=== PATIENT | female | born 1940 | race Caucasian/White ===

== ENCOUNTER 2016-04-14 11:37 | Emergency (ER) | payer MEDICARE ==
[2016-04-14 13:27] VITALS: BP 143/81
[2016-04-14] MEDS ORDERED: Ibuprofen TAB* 600 MG PO ONE (14:59)
[2016-04-14] MEDS ORDERED: Acetaminophen TAB* 325 MG PO ONE (15:00)
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
== END 2016-04-14 15:40 | disposition home or self-care (01) ==
LOC: UCEAST 11:37
DX: T22.211A Burn of second degree of right forearm, initial encounter (principal); X10.0XXA Contact with hot drinks, initial encounter; Y93.9 Activity, unspecified; Y92.9 Unspecified place or not applicable; J06.9 Acute upper respiratory infection, unspecified; Z88.6 Allergy status to analgesic agent; Z88.1 Allergy status to other antibiotic agents; Z88.2 Allergy status to sulfonamides; Z88.3 Allergy status to other anti-infective agents
CPT/HCPCS: 99213; A9270-GY; G0463

== ENCOUNTER 2016-04-25 05:05 | Emergency (ER) | payer MEDICARE ==
[2016-04-25 05:53] LABS: Hematocrit 45 % (35-47); Hemoglobin 15.1 g/dl (12.0-16.0); Mean Corpuscular HGB Conc 34 g/dl (31-36); Mean Corpuscular Hemoglobin 32 pg (27-31); Mean Corpuscular Volume 95 fL (80-97); Mean Platelet Volume 8 um3 (7.4-10.4); Red Blood Count 4.74 10^6/ul (4.0-5.4); Red Cell Distribution Width 14 % (10.5-15); White Blood Count 11.8 10^3/ul (3.5-10.8)
[2016-04-25 06:04] LABS: Albumin 3.8 g/dL (3.2-5.2); BUN/Creatinine Ratio 23.1 (8-20); C Reactive Protein 3.2 mg/L (< 5.00); EGFR African American 92.1 (>60); EGFR Non-African American 71.6 (>60); Globulin 2.8 g/dL (2-4); Magnesium 1.8 mg/dL (1.9-2.7); Potassium 3.9 mmol/L (3.5-5.0); Total Bilirubin 0.4 mg/dL (0.2-1.0); Total Protein 6.6 g/dL (6.4-8.9)
[2016-04-25 06:05] LABS: Troponin I 0.01 ng/mL (<0.04)
[2016-04-25] MEDS ORDERED: Ondansetron INJ* 2 MG/ML VIAL ONE (06:20)
[2016-04-25] MEDS ORDERED: Ondansetron INJ* 2 MG/ML VIAL IV ONE (06:22)
--- NOTE | 2016-04-25 06:22 | ED ---
Ramin Verdugo Karl, scribed for Diego Bahena MD on 04/25/16 at 0517 . Abdominal Pain/Female - HPI Summary HPI Summary: Pt is a 76 y/o female that presents to the ED c/o abd pain, nausea, and vomiting. Pt reported that she "thought she was having a heart attack but thinks it might be food poisoning." Pt stated that she woke up at 03:15 with nausea and epigastric abd pain so she drank renard rimma and proceeded to vomit it back up, slightly alleviating her abd pain. Pt stated she also felt SOB but has been feeling this intermittently for the past few days. Pt stated that she ate foods last night that she does not normally eat and that is why she suspects food poisoning. Pt reported that she took aspirin at home but it offered no relief. Pt denied diarrhea. Hx: CAD, HTN. - History of Current Complaint Chief Complaint: EDAbdPain Stated Complaint: ABD PAIN Hx Obtained From: Patient ?: No Onset/Duration: Gradual Onset, Lasting Hours, Still Present Timing: Constant Severity Initially: Moderate Severity Currently: Moderate Pain Intensity: 1 - abd pain Pain Scale Used: 0-10 Numeric Location: Epigastric Aggravating Factor(s): Nothing Alleviating Factor(s): Vomiting Associated Signs and Symptoms: Positive: Nausea, Vomiting. Negative: Diarrhea Allergies/Adverse Reactions: Allergies Allergy/AdvReac Type Severity Reaction Status Date / Time Codeine Allergy Severe Unknown Verified 01/20/16 16:28 Reaction Details Doxycycline Allergy Unknown Unknown Verified 01/20/16 16:28 Reaction Details Moxifloxacin [From Avelox] Allergy Unknown Unknown Verified 01/20/16 16:28 Reaction Details Niacin [From Niaspan] Allergy Unknown Unknown Verified 01/20/16 16:28 Reaction Details Nitrofurantoin Allergy Vomiting Verified 01/20/16 16:29 Statins Allergy Unknown Verified 01/20/16 16:28 Reaction Details Sulfa Antibiotics Allergy Hives Verified 01/20/16 16:28 Home Medications: Home Medications Acetaminophen [Arthritis Pain] 650 mg PO BID 04/25/16 [History Confirmed ] Nitroglycerin TAB 0.4 MG* 0.4 mg SL . NEEDED PRN 04/25/16 [History Confirmed 04/25/16] PMH/Surg Hx/FS Hx/Imm Hx Endocrine/Hematology History: Denies: Hx Diabetes, Hx Thyroid Disease Cardiovascular History: Reports: Hx Angina, Hx Coronary Artery Disease, Hx Hypercholesterolemia, Hx Hypertension, Other Cardiovascular Problems/Disorders - PATENT FORAMEN OVALE (SEEN ON 2011 SEGUNDO) Denies: Hx Congestive Heart Failure, Hx Pacemaker/ICD Respiratory History: Denies: Hx Asthma, Hx Chronic Obstructive Pulmonary Disease (COPD), Other Respiratory Problems/Disorders GI History: Reports: Hx Diverticulosis, Hx Gastroesophageal Reflux Disease Denies: Hx Ulcer Musculoskeletal History: Reports: Hx Arthritis Sensory History: Reports: Hx Cataracts, Hx Contacts or Glasses Denies: Hx Hearing Aid Opthamlomology History: Reports: Hx Cataracts, Hx Contacts or Glasses Neurological History: Reports: Hx Transient Ischemic Attacks (TIA) - POSSABLY TIA IN 2011, Other Neuro Impairments/Disorders - TIA 15 YRS AGO Psychiatric History: Reports: Hx Anxiety, Hx Depression - Surgical History Surgery Procedure, Year, and Place: Tummy tuck and breast reduction Hx Anesthesia Reactions: No Infectious Disease History: Denies: Hx Hepatitis, Hx Human Immunodeficiency Virus (HIV), History Other Infectious Disease - Family History Known Family History: Positive: Cardiac Disease Family History: No FHx of Malignant Hyperthermia. No FHx of Anesthesia Reaction. FHx of alzheimer's - Social History Alcohol Use: Daily Alcohol Amount: 2-3/WEEK Substance Use Type: Reports: None Hx Tobacco Use: No Smoking Status (MU): Never Smoked Tobacco Review of Systems Constitutional: Negative Eyes: Negative ENT: Negative Cardiovascular: Negative Positive: Shortness Of Breath Positive: Abdominal Pain, Vomiting, Nausea. Negative: Diarrhea Genitourinary: Negative Musculoskeletal: Negative Skin: Negative Neurological: Negative Psychological: Normal All Other Systems Reviewed And Are Negative: Yes Physical Exam Triage Information Reviewed: Yes Vital Signs On Initial Exam: Initial Vitals Temp Pulse Resp BP Pulse Ox 98.4 F 70 16 148/77 95 04/25/16 05:06 04/25/16 05:06 04/25/16 05:06 04/25/16 05:06 04/25/16 05:06 Vital Signs Reviewed: Yes Appearance: Positive: Well-Appearing, No Pain Distress Skin: Positive: Warm Eyes: Positive: COURTNEY ENT: Positive: Hearing grossly normal Neck: Positive: Supple Respiratory/Lung Sounds: Positive: Clear to Auscultation, Breath Sounds Present Cardiovascular: Positive: RRR Abdomen Description: Positive: Nontender, Soft Bowel Sounds: Positive: Present Musculoskeletal: Positive: Strength/ROM Intact Neurological: Positive: Sensory/Motor Intact, Alert, Oriented to Person Place, Time Psychiatric: Positive: Affect/Mood Appropriate Diagnostics - Vital Signs Vital Signs Temp Pulse Resp BP Pulse Ox 04/25/16 05:06 98.4 F 70 16 148/77 95 - Laboratory Lab Results: Lab Results 04/25/16 04/25/16 04/25/16 Range/Units 05:25 05:25 05:25 WBC 11.8 H (3.5-10.8) 10^3/ul RBC 4.74 (4.0-5.4) 10^6/ul Hgb 15.1 (12.0-16.0) g/dl Hct 45 (35-47) % MCV 95 (80-97) fL MCH 32 H (27-31) pg MCHC 34 (31-36) g/dl RDW 14 (10.5-15) % Plt Count 162 (150-450) 10^3/ul MPV 8 (7.4-10.4) um3 Neut % (Auto) 88.9 H (38-83) % Lymph % (Auto) 4.8 L (25-47) % Cherry % (Auto) 5.2 (1-9) % Eos % (Auto) 0.9 (0-6) % Baso % (Auto) 0.2 (0-2) % Absolute Neuts (auto) 10.5 H (1.5-7.7) 10^3/ul Absolute Lymphs (auto) 0.6 L (1.0-4.8) 10^3/ul Absolute Monos (auto) 0.6 (0-0.8) 10^3/ul Absolute Eos (auto) 0.1 (0-0.6) 10^3/ul Absolute Basos (auto) 0 (0-0.2) 10^3/ul Absolute Nucleated RBC 0 10^3/ul Nucleated RBC % 0 Sodium 137 (133-145) mmol/L Potassium 3.9 (3.5-5.0) mmol/L Chloride 106 (101-111) mmol/L Carbon Dioxide 25 (22-32) mmol/L Anion Gap 6 (2-11) mmol/L BUN 18 (6-24) mg/dL Creatinine 0.78 (0.51-0.95) mg/dL Est GFR ( Amer) 92.1 (>60) Est GFR (Non-Af Amer) 71.6 (>60) BUN/Creatinine Ratio 23.1 H (8-20) Glucose 124 H (70-100) mg/dL Lactic Acid 1.6 (0.5-2.0) mmol/L Calcium 9.0 (8.6-10.3) mg/dL Magnesium 1.8 L (1.9-2.7) mg/dL Total Bilirubin 0.40 (0.2-1.0) mg/dL AST 12 L (13-39) U/L ALT 12 (7-52) U/L Alkaline Phosphatase 36 (34-104) U/L Troponin I 0.01 (<0.04) ng/mL C-Reactive Protein 3.20 (< 5.00) mg/L Total Protein 6.6 (6.4-8.9) g/dL Albumin 3.8 (3.2-5.2) g/dL Globulin 2.8 (2-4) g/dL Albumin/Globulin Ratio 1.4 (1-3) Lipase 20 (11.0-82.0) U/L Result Diagrams: 04/25/16 05:25 04/25/16 05:25 Lab Statement: Any lab studies that have been ordered have been reviewed, and results considered in the medical decision making process. - EKG 05:20 EKG Interpretation: NSR at 69 bpm, Non-specific ST changes Re-Evaluation - Re-Evaluation First Eval Re-Evaluation Time: 06:39 - less nauseous Change: Improved Abdominal Pain Fem Course/Dx - Diagnoses Provider Diagnoses: Gastroenteritis Discharge - Discharge Plan Condition: Improved Disposition: HOME Patient Education Materials: Acute Nausea and Vomiting (ED), Full Liquid Diet ( GEN) Referrals: Vinicio Luu MD [Primary Care Provider] - The documentation as recorded by the Ramin akbar Karl accurately reflects the service I personally performed and the decisions made by , Diego Bahena MD.
[2016-04-25] MEDS ORDERED: NS 0.9% 1000 ML* 1,000 ML IV ONE (06:27)
[2016-04-25] MEDS ORDERED: Ondansetron ODT TAB* 4 MG PO ONE ×2 (06:47→10:00)
[2016-04-25 08:22] LABS: Urine Bacteria Absent (Absent); Urine Bilirubin Negative (Negative); Urine Glucose Negative (Negative); Urine Nitrite Negative (Negative)
[2016-04-25 12:30] VITALS: BP 138/63
== END 2016-04-25 10:20 | disposition home or self-care (01) ==
LOC: ED 05:05
DX: K52.9 Noninfective gastroenteritis and colitis, unspecified (principal); Z86.73 Personal history of transient ischemic attack (TIA), and cerebral infarction without residual deficits; I25.10 Atherosclerotic heart disease of native coronary artery without angina pectoris; Z88.5 Allergy status to narcotic agent; Z88.2 Allergy status to sulfonamides
CPT/HCPCS: 36415; 80053; 81003; 81015; 83605; 83690; 83735; 84484; 85025; 86140; 93005; 96360; 96365; 96374; 99282; A9270-GY; J2405

== ENCOUNTER 2018-01-18 09:36 | Emergency (ER) | payer MEDICARE ==
[2018-01-18 10:31] LABS: ABS Basophils 0 10^3/ul (0-0.2); ABS Eosinophils 0 10^3/ul (0-0.6); ABS Monocytes 0.5 10^3/ul (0-0.8); ABS Neutrophils 2.4 10^3/ul (1.5-7.7); ABS Nucleated RBC 0 10^3/ul; Eosinophil % 0.3 % (0-6); Hematocrit 40 % (35-47); Hemoglobin 13.9 g/dl (12.0-16.0); Lymphocyte % 40.3 % (25-47); Mean Corpuscular HGB Conc 35 g/dl (31-36); Mean Corpuscular Hemoglobin 33 pg (27-31); Mean Corpuscular Volume 96 fL (80-97); Mean Platelet Volume 8.4 um3 (7.4-10.4); Nucleated Red Blood Cells % 0.1; Platelet Count 155 10^3/ul (150-450); Red Blood Count 4.19 10^6/ul (4.00-5.40); Red Cell Distribution Width 14 % (10.5-15); White Blood Count 4.9 10^3/ul (3.5-10.8)
--- NOTE | 2018-01-18 10:43 | RAD ---
HISTORY: CP COMPARISONS: None VIEWS: 1: frontal AP view of the chest at 10:34 AM FINDINGS: LINES AND TUBES: None. CARDIOMEDIASTINAL SILHOUETTE: The aorta is tortuous. The cardiomediastinal silhouette is otherwise normal for portable technique. PLEURA: The costophrenic angles are sharp. No pleural abnormalities are noted. LUNG PARENCHYMA: The lungs are clear. ABDOMEN: The upper abdomen is clear. There is no subphrenic gas. BONES AND SOFT TISSUES: No bone or soft tissue abnormalities are noted. IMPRESSION: NO ACTIVE CARDIOPULMONARY DISEASE.
[2018-01-18 10:49] LABS: EGFR Non-African American 70.2 (>60)
--- NOTE | 2018-01-18 10:49 | ED ---
HPI Chest Pain - HPI Summary HPI Summary: A 78 y/o [place] [facility] [place] this [place]. She has had intermittent pain in her ribs since two weeks ago. She went to her doctor and told her that the pain was due to arthritis. Yesterday she began to have mid -sternal CP. This morning it became worse and she had vertigo and dizziness when stretching. She describes her pain as a tightness and rates the pain as a 3/10. Her pain decreased with NTG and she took 4 ASA. She did not eat anything this morning because she claims it worsens her pain. Laying down alleviates her pain but movement worsens the pain. She denies coughing although she intentionally coughed today thinking it would help her CP. and has had angina across her chest, but is different from her current pain. She denies DM and CAD. - History of Current Complaint Chief Complaint: EDChestPainROMI Time Seen by Provider: 01/18/18 09:41 Hx Obtained From: Patient Onset/Duration: Started Days Ago, Still Present Timing: Intermittent Initial Severity: Moderate Current Severity: Moderate Pain Intensity: 3 Pain Scale Used: 0-10 Numeric Chest Pain Location: Mid Sternal Chest Pain Radiates: No Aggravating Factor(s): Exertion Associated Signs and Symptoms: Positive: Chest Pain, Dizziness - Allergy/Home Medications Allergies/Adverse Reactions: Allergies Allergy/AdvReac Type Severity Reaction Status Date / Time codeine Allergy Severe Unknown Verified 01/18/18 09:57 Reaction Details doxycycline Allergy Unknown Verified 01/18/18 09:57 Reaction Details moxifloxacin [From Avelox] Allergy Unknown Verified 01/18/18 09:59 Reaction Details niacin Allergy Unknown Verified 01/18/18 09:59 Reaction Details nitrofurantoin Allergy Vomiting Verified 01/18/18 09:58 Gqzbios-Llx-Irp Reductase Allergy Unknown Verified 01/18/18 09:57 Inhibitor Reaction Details Sulfa (Sulfonamide Allergy Hives Verified 01/18/18 09:58 Antibiotics) Home Medications: Home Medications Albuterol HFA INHALER* [Ventolin HFA Inhaler*] 1 puff INH Q6H PRN 01/18/18 [ History Confirmed 01/18/18] Aspirin EC TAB* [Ecotrin EC Low Dose 81 MG*] 81 mg PO DAILY 01/18/18 [History Confirmed 01/18/18] Ca/D3/Mag Ox/Zinc/Mason Foreman/Superintendant/Kane/Bor [Calcium 600-D3 Plus Caplet] 1 cap PO DAILY 01/18 [History Confirmed 01/18/18] Escitalopram (NF) [Lexapro 20 mg (NF)] 20 mg PO DAILY 01/18/18 [History Confirmed 01/18/18] Fluticasone NASAL SPRAY 50MCG* [Flonase NASAL SPRAY 50MCG*] 2 spray BOTH NARES DAILY PRN 01/18/18 [History Confirmed 01/18/18] Gemfibrozil TAB* [Lopid TAB*] 600 mg PO BID 01/18/18 [History Confirmed ] Glucosamine/MSM/Chondroitin A [Triple Flex Caplet] 1 tab PO DAILY 01/18/18 [ History Confirmed 01/18/18] Lactobacillus Acidophilus [Probiotic Acidophilus] 1 tab PO DAILY 01/18/18 [ History Confirmed 01/18/18] Metoprolol Succinate XL TAB* [Toprol XL TAB*] 25 mg PO DAILY 01/18/18 [History Confirmed 01/18/18] Nitroglycerin TAB 0.4 MG* 0.4 mg SL Q5M PRN 01/18/18 [History Confirmed 01/18/18 ] [place]-3/Dha/Epa/Fish Oil [Fish Oil 500 mg Softgel] 500 mg PO DAILY 01/18/18 [ History Confirmed 01/18/18] Ubidecarenone [Coenzyme Q10] 200 mg PO DAILY 01/18/18 [History Confirmed ] Zolpidem TAB* [Ambien*] 5 mg PO BEDTIME PRN 01/18/18 [History Confirmed 01/18/18 ] PMH/Surg Hx/FS Hx/Imm Hx Endocrine/Hematology History: Denies: Hx Diabetes, Hx Thyroid Disease Cardiovascular History: Reports: Hx Angina, Hx Coronary Artery Disease, Hx Hypercholesterolemia, Hx Hypertension, Other Cardiovascular Problems/Disorders - PATENT FORAMEN OVALE (SEEN ON 2010 SEGUNDO) Denies: Hx Congestive Heart Failure, Hx Pacemaker/ICD Respiratory History: Denies: Hx Asthma, Hx Chronic Obstructive Pulmonary Disease (COPD), Other Respiratory Problems/Disorders GI History: Reports: Hx Diverticulosis, Hx Gastroesophageal Reflux Disease Denies: Hx Ulcer History: Denies: Hx Dialysis, Hx Renal Disease Musculoskeletal History: Reports: Hx Arthritis Sensory History: Reports: Hx Cataracts, Hx Contacts or Glasses Denies: Hx Hearing Aid Opthamlomology History: Reports: Hx Cataracts, Hx Contacts or Glasses Neurological History: Reports: Hx Transient Ischemic Attacks (TIA) - POSSABLY TIA IN 2010, Other Neuro Impairments/Disorders - TIA 15 YRS AGO Psychiatric History: Reports: Hx Anxiety, Hx Depression Denies: Hx Panic Disorder - Surgical History Surgery Procedure, Year, and Place: Tummy tuck and breast reduction,tubal, neck lift Hx Anesthesia Reactions: No - Immunization History Date of Tetanus Vaccine: UTD Date of Influenza Vaccine: 02/26 Infectious Disease History: No Infectious Disease History: Denies: Hx Hepatitis, Hx Human Immunodeficiency Virus (HIV), History Other Infectious Disease, Traveled Outside the [place] in Last 30 Days - Family History Known Family History: Positive: Cardiac Disease Negative: Hypertension Family History: No FHx of Malignant Hyperthermia. No FHx of Anesthesia Reaction. FHx of alzheimer's - Social History Alcohol Use: Weekly Alcohol Amount: 2-3/WEEK Substance Use Type: Reports: None Hx Tobacco Use: No Smoking Status (MU): Never Smoked Tobacco Review of Systems Negative: Fever Positive: Other - Positive: cataracts Positive: Chest Pain Negative: Cough Neurological: Other - Positive: dizziness All Other Systems Reviewed And Are Negative: Yes Physical Exam - Summary Physical Exam Summary: Appearance: Well appearing, no pain distress Skin: warm, dry, reflects adequate perfusion Head/face: normal Eyes: EOMI, COURTNEY, implanted lenses ENT: mucous membranes moist Neck: supple, non-tender Respiratory: CTA, breath sounds present Cardiovascular: RRR, pulses symmetrical Abdomen: exacerbated pain when sitting up, RUQ non-tender laying down, soft Bowel Sounds: present Musculoskeletal: normal, strength/ROM intact Neuro: normal, sensory motor intact, A&Ox3 Triage Information Reviewed: Yes Vital Signs On Initial Exam: Initial Vitals Temp Pulse Resp BP Pulse Ox 97.6 F 57 18 172/91 99 01/18/18 09:42 01/18/18 09:42 01/18/18 09:42 01/18/18 09:42 01/18/18 09:42 Vital Signs Reviewed: Yes Diagnostics - Vital Signs Vital Signs Temp Pulse Resp BP Pulse Ox 01/18/18 10:13 54 15 139/111 98 01/18/18 10:00 55 27 99 01/18/18 09:58 60 22 198/91 98 01/18/18 09:42 97.6 F 65 22 172/91 99 - Laboratory Lab Results: Lab Results 01/18/18 01/18/18 Range/Units 10:17 10:17 WBC 4.9 (3.5-10.8) 10^3/ul RBC 4.19 (4.00-5.40) 10^6/ul Hgb 13.9 (12.0-16.0) g/dl Hct 40 (35-47) % MCV 96 (80-97) fL MCH 33 H (27-31) pg MCHC 35 (31-36) g/dl RDW 14 (10.5-15) % Plt Count 155 (150-450) 10^3/ul MPV 8.4 (7.4-10.4) um3 Neut % (Auto) 49.6 (38-83) % Lymph % (Auto) 40.3 (25-47) % [place] % (Auto) 9.3 H (0-7) % Eos % (Auto) 0.3 (0-6) % Baso % (Auto) 0.5 (0-2) % Absolute Neuts (auto) 2.4 (1.5-7.7) 10^3/ul Absolute Lymphs (auto) 2.0 (1.0-4.8) 10^3/ul Absolute Monos (auto) 0.5 (0-0.8) 10^3/ul Absolute Eos (auto) 0 (0-0.6) 10^3/ul Absolute Basos (auto) 0 (0-0.2) 10^3/ul Absolute Nucleated RBC 0 10^3/ul Nucleated RBC % 0.1 D-Dimer, Quantitative < 200 (Less Than 230) ng/mL Result Diagrams: 01/18/18 10:17 01/18/18 10:17 Lab Statement: Any lab studies that have been ordered have been reviewed, and results considered in the medical decision making process. - Radiology CXR Xray Interpretation: No Acute Changes Radiology Interpretation Completed By: Radiologist - No active cardiopulmonary disease. This report has been reviewed by the ED physician. - EKG 10:00 Cardiac Rate: Bradycardia - 52 bpm EKG Rhythm: Sinus Bradycardia ST Segment: Non-Specific EKG Interpretation: LAD, q waves in inferior leads Re-Evaluation - Re-Evaluation First Eval Re-Evaluation Time: 11:17 Change: Unchanged Comment: Still has discomfort with movement Second Eval Re-Evaluation Time: 12:50 Change: Improved - Pain is totally resolved. Chest Pain Course/Dx - Course Course Of Treatment: Patient presents with sharp chest pain in 1 location only hurts when she moves. Her d-dimer is negative. Troponin is negative. EKG shows no acute changes. She does have Q waves inferior. Troponin 2 has been negative. Pain was totally relieved after Toradol. She is scheduled to see cardiology later this month. She'll the discharge and follow-up closely with her primary care physician. Heart score 3. - Chest Pain Differential Diagnosis/HQI/PQRI: Acute SC, ACS, CHF, Chest Wall, GI Disease, Lower Respiratory Infection - Diagnoses Provider Diagnoses: Atypical chest pain, Chest wall pain Discharge - Sign-Out/Discharge Documenting (check all that apply): Patient Departure - DC - Discharge Plan Condition: Stable Disposition: HOME Prescriptions: Meloxicam(NF) [Mobic(NF)] 7.5 mg PO DAILY #30 tab Patient Education Materials: Chest Wall Pain (ED) Referrals: Vinicio Luu MD [Primary Care Provider] - Additional Instructions: Today to schedule follow-up with your doctor. Return with fever, difficulty breathing, vomiting, worse, new symptoms or other concerns. - Billing Disposition and Condition Condition: STABLE Disposition: Home - Attestation Statements Document Initiated by Scribe: Yes Documenting Scribe: Stephen Horner Provider For Whom Tanisha is Documenting (Include Credential): Dejuan Mccollum MD Scribe Attestation: I, Stephen Horner, scribed for Dejuan Mccollum MD on 01/18/18 at 1514. Scribe Documentation Reviewed: Yes Provider Attestation: The documentation as recorded by the Stephen akbar accurately reflects the service I personally performed and the decisions made by me, Dejuan Mccollum MD
[2018-01-18] MEDS ORDERED: Lidocaine 2% VISCOUS* 15 ML UDC PO ONE (11:26)
[2018-01-18] MEDS ORDERED: Famotidine TAB* 20 MG PO ONE (11:26)
[2018-01-18] MEDS ORDERED: Al Hydrox/Mg Hydrox/Simet LIQ* 30 ML UDC PO ONE (11:26)
[2018-01-18] MEDS ORDERED: Ketorolac INJ* 30 MG/ML 1 ML VIAL IV PUSH ONE (11:26)
[2018-01-18 13:54] VITALS: BP 141/86
== END 2018-01-18 15:07 | disposition home or self-care (01) ==
LOC: ED 09:36
DX: R07.89 Other chest pain (principal); R00.1 Bradycardia, unspecified; Z88.5 Allergy status to narcotic agent; Z88.3 Allergy status to other anti-infective agents; Z88.2 Allergy status to sulfonamides
CPT/HCPCS: 36415; 71045; 80053; 82550; 83605; 83880; 84484; 85025; 85379; 93005; 96374; 99283; A9270-GY; J1885

== ENCOUNTER 2018-11-06 21:04 | Emergency (ER) | payer MEDICARE ==
[2018-11-06 21:14] VITALS: BP 136/62
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
== END 2018-11-06 22:36 | disposition home or self-care (01) ==
LOC: UCEAST 21:04
DX: S43.422A Sprain of left rotator cuff capsule, initial encounter (principal); V18.4XXA Pedal cycle driver injured in noncollision transport accident in traffic accident, initial encounter; Y93.55 Activity, bike riding; Y92.410 Unspecified street and highway as the place of occurrence of the external cause; Y99.8 Other external cause status; Z88.5 Allergy status to narcotic agent; Z88.2 Allergy status to sulfonamides
CPT/HCPCS: 99213; G0463

== ENCOUNTER 2019-04-11 09:56 | Emergency (ER) | payer MEDICARE ==
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
--- OUTSIDE RECORDS SUMMARY | 2019-04-11 10:03 | XMS REPORT | Summary of Care ---
:1940 Author Organization [facility] Address [address] [place] [address] Care Team Providers Name Role Phone BellVinicio moses Primary Care Provider Reason for Visit Reason Comments Follow Up Amanda is here today for MRI results for her left shoulder Encounter Details Date Type Department Care Team Description 03/02/2019 Office Visit [facility] - Carrillo Rodriguez MD Acute pain of left [place] [address] [facility] shoulder (Primary Dx) [address] [facility] [place] [address] [address] [phone] [place] [address] [phone] Allergies Active Allergy Reactions Severity Noted Date Comments Moxifloxacin Hydrochloride GI Reaction 05/07/2007 "vomiting and diarrhea" Bactrim Ds Rash 02/08/2014 Codeine Rash 05/07/2007 Doxycycline Hyclate Other 09/07/2009 Niacin Rash 03/26/2011 Nitrofurantoin GI Reaction 01/10/2016 documented as of this encounter (statuses as of 03/02/2019) Medications Medication Sig Dispensed Refills Start Date End Date Status FISH OIL 500 MG PO Take 1 Tab by mouth 0 Active CAPS *DAILY. ASPIR-81 81 MG Oral Take 81 mg by mouth 0 Active Tab EC DAILY. Coenzyme Q10 (CO Take 1 Cap by mouth 0 Active Q-10) 200 MG Oral Cap DAILY. Calcium Take 1 Tab by mouth 0 Active Carbonate-Vitamin D DAILY. (CALCIUM 600+D3 PO) Probiotic Product Take 1 Tab by mouth 0 Active (PROBIOTIC & DAILY. ACIDOPHILUS EX ST PO) Glucosamine-Chondroit Take 1 Tab by mouth 0 Active in-MSM (TRIPLE FLEX TWICE DAILY. PO) albuterol HFA Take 2 Puffs by 1 Inhaler 2 11/02/2015 Active (VENTOLIN) 108 (90 inhalation EVERY BASE) MCG/ACT SIX HOURS NEEDED Inhalation Aero Soln (wheeze). estrogens, conjugated Place 0.5 1 Tube 5 11/26/2015 Active (PREMARIN) 0.625 Applicators into MG/GM Vaginal Cream the vagina 2 times per week at bedtime. nitroglycerin Place 1 Tab under 25 Tab 0 09/18/2016 Active (NITROSTAT) 0.4 MG tongue EVERY FIVE Sublingual SL Tab MINUTES NEEDED for chest pain. escitalopram TAKE ONE TABLET BY 90 Tab 1 10/26/2017 Active (LEXAPRO) 20 MG Oral MOUTH ONCE DAILY Tab ezetimibe (ZETIA) 10 Take 5 mg by mouth 0 Active MG Oral Tab DAILY. zolpidem (AMBIEN) 5 Take 1 Tab by mouth 30 Tab 0 12/20/2018 Active MG Oral Tab EVERY BEDTIME NEEDED (insomnia of travel). Max Daily Amount: 5 mg. metoprolol succinate TAKE ONE TABLET BY 90 Tab 2 12/31/2018 Active (TOPROL XL) 25 MG MOUTH ONCE DAILY Oral TABLET SR 24 HR azithromycin Take 2 pills on the 6 Tab 0 01/05/2019 Active (ZITHROMAX Z-TITI) 250 first day and 1 MG Oral Tab pill each day for 4 days Turmeric ([facility] Take 1 Tab by mouth 0 Active TURMERIC CURCUMIN) TWICE DAILY. 500 MG Oral Indications: CapIndications: Inflammation Inflammation hydrocod Take 5 mL by mouth 120 mL 0 01/31/2019 Active polst-chlorphen polst EVERY TWELVE HOURS (TUSSIONEX) 10-8 NEEDED (cough). MG/5ML Oral Max Daily Amount: Suspension Extended 10 mL. ReleaseIndications: Cough guaiFENesin-codeine Take 10 mL by mouth 210 mL 0 02/16/2019 Active (ROBITUSSIN AC) EVERY EIGHT HOURS 100-10 MG/5ML Oral NEEDED (cough). SolutionIndications: Max Daily Amount: Cough 30 mL. documented as of this encounter (statuses as of 03/02/2019) Active Problems Problem Noted Date BMI 31.0-31.9,adult 10/11/2010 Overview: This patient's BMI has been calculated and is above average, and BMI management plan is completed. General patient education discussion including: weight loss link to reduction of risk factors for car diac and other diseases, importance of long-term maintenance treatment in weight loss and is managed by diet and exercise. Insomnia 09/27/2009 AK (actinic keratosis) 09/09/2009 Severe episode of recurrent major depressive disorder, without psychotic 06/17 features CAD (coronary artery disease) 06/17/2006 Mixed hyperlipidemia 06/17/2006 Essential hypertension 06/17/2006 Herpes simplex without mention of complication 06/17/2006 Memory loss 06/17/2006 documented as of this encounter (statuses as of 03/02/2019) Resolved Problems Problem Noted Date Resolved Date S/P colonoscopy 12/13/2008 09/09/2009 Overview: Surgy Care 12/05/08 Other diseases of lung, not elsewhere classified 06/17/2006 09/09/2009 Personal history of colonic polyps 06/17/2006 09/09/2009 Esophageal reflux 06/17/2006 09/09/2009 documented as of this encounter (statuses as of 03/02/2019) Immunizations Name Administration Dates Next Due Hepatitis A Vaccine-Adult 09/30/2002, 03/11/1999 Hepatitis B Vaccine Adult 11/07/1999, 05/08/1999, 03/11/1999 Influenza (IM) Preservative Free 01/03/2013, 01/03/2013, 12/31/2011, 12/18/2009 Influenza (IM) W/Pres 01/24/2008 Influenza Vaccine 65 Yrs + 12/22/2018 Influenza Vaccine High Dose 01/15/2018, 01/10/2017, 01/10/2017, 01/06/2016 01/05/2015, 01/18/2014 Influenza Vaccine Whole 12/31/2011, 01/11/2011, 01/25/2007, 02/11/2006 PNEUMOCOCCAL POLYSACCHARIDE VACCINE 02/11/2006 Pneumococcal Conjugate(13 Valent) 02/24/2016 Polio - Inactivated Vaccine 09/30/2002 TDAP Vaccine 05/06/1992 TETANUS & DIPHTHERIA TOXOID (OVER 7 06/21/2009 YRS) TYPHOID VACCINE 09/30/2002, 09/22/1972, 09/18/1972 Tetanus Vaccine 08/01/1999, 04/13/1995 Tetanus/Diptheria Vaccine 03/06/1993 Tuberculin Skin Test 03/13/1999 ZOSTER (SHINGRIX) VACCINE 10/29/2018, 07/21/2018 documented as of this encounter Social History Tobacco Use Types Packs/Day Years Used Date Never Smoker 0 Smokeless Tobacco: Never Used Tobacco Cessation: Counseling Given: No Alcohol Use Drinks/Week oz/Week Comments No rare Social Isolation Answer Date Recorded In a typical week, how many times do you More than three times a week 2018 talk on the phone with family, friends, or neighbors? How often do you get together with friends More than three times a week 10/06 or relatives? How often do you attend taoism or Not asked shinto services? Do you belong to any clubs or Not asked organizations such as taoism groups, unions, fraNetatmo or athletic groups, or school groups? How often do you attend meetings of the Not asked clubs or organizations you belong to? Are you now , , , 10/06/2018 , never or living with a partner? Physical Activity Answer Date Recorded On average, how many days per week do you engage in moderate to 0 days 2018 strenuous exercise (like walking fast, running, jogging, dancing, swimming, biking, or other activities that cause a light or heavy sweat)? On average, how many minutes do you engage in exercise at this 0 min 2018 level? Stress Answer Date Recorded Do you feel stress - tense, restless, nervous, or anxious, Not at all 2018 or unable to sleep at night because your mind is troubled all the time - these days? Financial Resource Strain Answer Date Recorded How hard is it for you to pay for the very basics like Not hard at all 2018 food, housing, medical care, and heating? Intimate Partner Violence Answer Date Recorded Within the last year, have you been afraid of your partner or No 10/06/2018 ex-partner? Within the last year, have you been humiliated or emotionally No 10/06/2018 abused in other ways by your partner or ex-partner? Within the last year, have you been kicked, hit, slapped, or No 10/06/2018 otherwise physically hurt by your partner or ex-partner? Within the last year, have you been raped or forced to have any No 10/06/2018 kind of sexual activity by your partner or ex-partner? Food Insecurity Answer Date Recorded Within the past 12 months, you worried that your food would Never true 2018 run out before you got money to buy more. Within the past 12 months, the food you bought just didn't Never true 2018 last and you didn't have money to get more. Transportation Needs Answer Date Recorded In the past 12 months, has lack of transportation kept you from No 10/06/2018 medical appointments or from getting medications? In the past 12 months, has lack of transportation kept you from No 10/06/2018 meetings, work, or getting things needed for daily living? Sex Assigned at Date Recorded Not on file Job Start Date Occupation Industry Not on file Not on file Not on file Travel History Travel Start Travel End No recent travel history available. documented as of this encounter Last Filed Vital Signs Vital Sign Reading Time Taken Comments Blood Pressure 124/65 03/02/2019 9:11 AM EST Pulse 56 03/02/2019 9:11 AM EST Temperature - - Respiratory Rate - - Oxygen Saturation - - Inhaled Oxygen Concentration - - Weight 69.4 kg (153 lb) 03/02/2019 9:11 AM EST Height 152.4 cm (5') 03/02/2019 9:11 AM EST Body Mass Index 29.88 03/02/2019 9:11 AM EST documented in this encounter Progress Notes Carrillo Rodriguez MD - 03/02/2019 9:00 AM EST PATIENT: Amanda Pate : 1940 DATE OF SERVICE: 03/02/2019 REFERRING PRACTITIONER: Carrillo Rodriguez PRIMARY CARE PROVIDER: Vinicio Luu CHIEF COMPLAINT: Chief Complaint Patient presents with Follow Up Amanda is here today for MRI results for her left shoulder HISTORY OF PRESENT ILLNESS: Amanda Pate is a 79-y.o. female who presents for left shoulder pain. PHYSICAL EXAMINATION: The patient is a cooperative patient in no acute distress. VITALS: BP 124/65 (BP Location: Left arm, Patient Position: Sitting) | Pulse 56 | Ht 5' (1.524 m) | Wt 153 lb (69.4 kg) | BMI 29.88 kg/m Body mass index is 29.88 kg/m.. Shoulder Exam General Skin: Intact Muscle Bulk: no gross atrophy noted Crepitus: minimal Neurovascular Sensation: axillary/median/ulnar/radial nerve Sensate to light touch Strength: biceps, triceps, wrist extension, wrist flexion, interossei 5/5 Vascular: Good pulse C-spine: Negative Range of motion Forward elevation: 130 Internal rotation: L5 External rotation: 30 Rotation 90 abduction: 0-90 Subscapularis Belly Press: negative Lift Off: negative Supraspinatus Supraspinatus strength testin/5 Infraspinatus/Teres Minor External rotation strength: 4/5 Hornblower: negative IMPRESSION: ICD-9-CM ICD-10-CM 1. Acute pain of left shoulder 719.41 M25.512 PLAN: We discussed the etiology and the progression of a full thickness rotator cuff tear. A rotator cufftear does not heal itself, therefore, surgery is indicated when conservative treatment has failed. The risks to surgery include bleeding, infection, nerve damage, wound healing problems, failure of tendon to heal to bone, shoulder stiffness, possibility of revision surgery down the road, hardware failure, RSD, blood clots, lung clots, , fracture, and anesthetic related complications. The patient understands the risks and wishes to proceed with surgery. I will get the patient scheduled. Postoperatively, I will have them immobilized in a abduction sling. Generally, there is no range of motion until the 4th/6th postoperative week. We will discuss the progression of therapy at our follow-up visit. Author: Carrillo Rodriguez MD 03/02/2019 09:36 documented in this encounter Plan of Treatment Health Maintenance Due Date Last Done Comments DEPRESSION SCREENING 10/07/2019 10/06/2018 MEDICARE ANNUAL WELLNESS 10/07/2019 10/06/2018, 09/21/2017, VISIT 09/18/2016, Additional history exists FALL RISK ASSESSMENT 02/10/2020 02/09/2019, 02/09/2019 HIV SCREENING Completed 12/28/2001 PNEUMOCOCCAL 65+YRS Completed 02/24/2016, 02/11/2006 ZOSTER IMMUNIZATION SERIES Completed 10/29/2018, 07/21/2018 INFLUENZA VACCINE Completed 12/22/2018, 01/15/2018, 01/10/2017, Additional history exists HPV IMMUNIZATION SERIES Aged Out No longer eligible based on patient's age to complete this topic MENINGOCOCCAL VACCINE IMM Aged Out No longer eligible based on patient's age to complete this topic documented as of this encounter Goals Goal Patient Goal Associated Recent Patient-Stated? Author Type Problems Progress Blood Pressure Blood Pressure 124/65 No Bell, < 150/90 (03/02/2019 MD Vinicio 9:11 AM EST) Note: This is an individualized treatment (blood pressure) goal for [facility]: Displayed above (on the left) is your goal for blood pressure control. Your most recent blood pressure is also shown above, on the right. You should try to achieve blood pressures that are lower than your goal listed above (on the left). Depression screen (PHQ-9) total score < 5 Depression No Vinicio Luu MD Note: This is an individualized treatment (depression) goal for [facility]: Displayed above is your goal for a depression screening (PHQ-9) score that would indicate good control of your depression. Hyperlipidemia Lifestyle No Vinicio Luu MD Note: 1. LDL<100 2. Triglycerides (Trig) <150 3. Weight Reduction-BMI <25 4. Heart Health Diet -Eat 5 servings of fruits and vegetables every day. -Dietary fiber is important. 25 grams a day for a woman and 38 grams of fiber a day for men -Trans fats and saturated fats chould be avoided in favor of monounsaturated and polyunsaturated fats. -Do not replace fat with refined carbohydrate. This would decrease HDL -Eat vegetables as snacks. -Put fruit on your cereal -Replace refined grains ( like white bread, white rice) with whole grains ( like whole wheat bread and brown rice) -Cook with oils that contain polyunsaturated and monounsaturated fats, like olive, canola, and peanut oil -Choose margarine that do not have partially hydrogenated oils -Soft margarines ( especially squeeze margarines) have less trans fatty acids. -Eat fewer baked goods that are store made and contain partially hydrogenated fats (many types of crackers, cookies, and cupcakes) -Choose non sweetened and non alcoholic beverages, like water, at meals and parties. Weight loss vs. 18 mo Lifestyle 5.2 (03/02/2019 9:11 AM EST) No Vinicio Luu MD max (lbs) >= 10 Note: This is an individualized lifestyle goal for Amanda Pate: Your body mass index (BMI) is more than 30. You should lose weight. A reasonable starting goal is to lose 10 pounds. Displayed above is how many pounds you have lost thus far towards your 10 pound weight loss goal. Keep a regular sleep schedule Lifestyle No Vinicio Luu MD Note: This is an individualized lifestyle goal for Amanda Pate: Please maintain a regular sleep schedule. This may help with some symptoms of depression. Take all prescribed medications as directed Self-management No Vinicio Luu MD Note: This is an individualized self-management goal for Amanda Pate: Please take all prescribed medications as directed. 1. Do not skip doses. If you cannot afford your medications, talk with your doctor. 2. Use a pill reminder system such as a pill box if needed. Your pharmacist can help you with this. 3. Contact your Pharmacy 5 days before your medication runs out. If you cannot take your medications for any reasons, talk with your doctor. 4. Please bring all of your medication bottles and inhalers (or a list of all your medications/inhalers) with you to every visit. Potential barriers to meeting all of your care plan goals will continue to be addressed on an ongoing basis. documented as of this encounter Results Not on filedocumented in this encounter Visit Diagnoses Diagnosis Acute pain of left shoulder - Primary documented in this encounter Insurance Payer Benefit Plan / Subscriber ID Effective Dates Phone Address Type Group MEDICARE MEDICARE PART A xxxxxxxxxxx 2004-Present Medicare & B [facility] COMMERCIAL [facility] CARE xxxxxxxxxxx 2016-Present [facility] OPTIONS Guarantor Name Account Type Relation to Date of Phone Billing Patient Address Grisel Pate Personal/Family 1940 [address] (Home) [id number] [phone] [place], [place] (Work) [id number] documented as of this encounter Advance Directives Type Date 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
--- OUTSIDE RECORDS SUMMARY | 2019-04-11 10:03 | XMS REPORT | Summary of Care ---
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 states stressed and would like to go over upcoming surgery Encounter Details Date Type Department Care Team Description 03/21/2019 Office Visit [facility] Vinicio Luu MD Traumatic complete Practice [address] [facility] tear of left rotator [address] [place] [address] cuff, [place] [address] encounter (Primary Dx) [phone] Allergies Active Allergy Reactions Severity Noted Date Comments Moxifloxacin Hydrochloride GI Reaction 05/07/2007 "vomiting and diarrhea" Bactrim Ds Rash 02/08/2014 Codeine Rash 05/07/2007 Doxycycline Hyclate Other 09/07/2009 Niacin Rash 03/26/2011 Nitrofurantoin GI Reaction 01/10/2016 documented as of this encounter (statuses as of 03/21/2019) Medications Medication Sig Dispensed Refills Start End Date Status Date FISH OIL 500 MG PO Take 1 Tab by 0 Active CAPS mouth *DAILY. ASPIR-81 81 MG Take 81 mg by 0 Active Oral Tab EC mouth DAILY. Coenzyme Q10 (CO Take 1 Cap by 0 Active Q-10) 200 MG Oral mouth DAILY. Cap Calcium Take 1 Tab by 0 Active Carbonate-Vitamin mouth DAILY. D (CALCIUM 600+D3 PO) Probiotic Product Take 1 Tab by 0 Active (PROBIOTIC & mouth DAILY. ACIDOPHILUS EX ST PO) Glucosamine-Chondr Take 1 Tab by 0 Active oitin-MSM (TRIPLE mouth TWICE FLEX PO) DAILY. albuterol HFA Take 2 Puffs by 1 Inhaler 2 Active (VENTOLIN) 108 (90 inhalation EVERY 6 BASE) MCG/ACT SIX HOURS Inhalation Aero NEEDED (wheeze). Soln estrogens, Place 0.5 1 Tube 5 Active conjugated Applicators into 6 (PREMARIN) 0.625 the vagina 2 MG/GM Vaginal times per week Cream at bedtime. nitroglycerin Place 1 Tab 25 Tab 0 Active (NITROSTAT) 0.4 MG under tongue 7 Sublingual SL Tab EVERY FIVE MINUTES NEEDED for chest pain. escitalopram TAKE ONE TABLET 90 Tab 1 Active (LEXAPRO) 20 MG BY MOUTH ONCE 8 Oral Tab DAILY ezetimibe (ZETIA) Take 5 mg by 0 Active 10 MG Oral Tab mouth DAILY. metoprolol TAKE ONE TABLET 90 Tab 2 Active succinate (TOPROL BY MOUTH ONCE 9 XL) 25 MG Oral DAILY TABLET SR 24 HR Turmeric ([facility] Take 1 Tab by 0 Active TURMERIC CURCUMIN) mouth TWICE 500 MG Oral DAILY. CapIndications: Indications: Inflammation Inflammation zolpidem (AMBIEN) Take 1 Tab by 30 Tab 0 Active 5 MG Oral Tab mouth EVERY 9 BEDTIME NEEDED (insomnia of travel). Max Daily Amount: 5 mg. zolpidem (AMBIEN) Take 1 Tab by 30 Tab 0 03/21/20 Discontinued 5 MG Oral Tab mouth EVERY 9 19 (Reorder) BEDTIME NEEDED (insomnia of travel). Max Daily Amount: 5 mg. azithromycin Take 2 pills on 6 Tab 0 03/21/20 Discontinued (ZITHROMAX Z-TITI) the first day 12 30 250 MG Oral Tab and 1 pill each day for 4 days hydrocod Take 5 mL by 120 mL 0 10/21/201 12/09/20 Discontinued polst-chlorphen mouth EVERY 12 30 polst (TUSSIONEX) TWELVE HOURS 10-8 MG/5ML Oral NEEDED (cough). Suspension Max Daily Extended Amount: 10 mL. ReleaseIndications : Cough guaiFENesin-codein Take 10 mL by 210 mL 0 03/21/20 Discontinued e (ROBITUSSIN AC) mouth EVERY 12 30 100-10 MG/5ML Oral EIGHT HOURS SolutionIndication NEEDED (cough). s: Cough Max Daily Amount: 30 mL. documented as of this encounter (statuses as of 03/21/2019) Active Problems Problem Noted Date Nontraumatic complete tear of left rotator cuff 03/02/2019 Overview: Added automatically from request for surgery [id number] BMI 31.0-31.9,adult 10/11/2010 Overview: This patient's BMI [...] as of this encounter (statuses as of 03/21/2019) Resolved Problems Problem Noted Date Resolved Date S/P colonoscopy 12/13/2008 09/09/2009 Overview: Surgy Care 12/05/08 Other diseases of lung, not elsewhere classified 06/17/2006 09/09/2009 Personal history of colonic polyps 06/17/2006 09/09/2009 Esophageal reflux 06/17/2006 09/09/2009 documented as of this encounter (statuses as of 03/21/2019) Immunizations Name Administration Dates Next Due Hepatitis [...] Never Smoker 0 Smokeless Tobacco: Never Used Alcohol Use Drinks/Week oz/Week Comments No rare Social Isolation Answer Date Recorded In a typical week, how many times do you More than three times a week 2018 talk on the phone with family, friends, or neighbors? How often do you get together with friends More than three times a week 10/06 or relatives? How often do you attend gnosticist or Not asked scientology services? Do you belong to any clubs or Not asked organizations such as gnosticist groups, unions, fraternal or athletic groups, or school groups? How [...] Sign Reading Time Taken Comments Blood Pressure 112/68 03/21/2019 10:50 AM EST Pulse 68 03/21/2019 10:50 AM EST Temperature - - Respiratory Rate - - Oxygen Saturation 100% 03/21/2019 10:50 AM EST Inhaled Oxygen Concentration - - Weight 69.4 kg (153 lb) 03/21/2019 10:50 AM EST Height 152.4 cm (5') 03/21/2019 10:50 AM EST Body Mass Index 29.88 03/21/2019 10:50 AM EST documented in this encounter Progress Notes Vinicio Luu MD - 03/21/2019 10:40 AM EST PATIENT: Amanda Pate : 1940 DATE OF SERVICE: 03/21/2019 CHIEF COMPLAINT: Chief Complaint Patient presents with Other pt presents for issues with sleeping. states stressed and would like to go over upcoming surgery Subjective HISTORY OF PRESENT ILLNESS: Amanda Pate is a 79-y.o. female. She fell few moths ago and injured left arm. Tried PT but not better and had mri showing cuff tears Has seen Dr Rodriguez who recommended surgery however because the surgery date not set up she took it asa sign that she should get another opinion . Many of her friends see a doctor in [place] and her sons dont want her to do it at all. She still has pain on ROM but has no pain if sits still . She is very worried over her surgery and is not sleeping. She asks for ambien Past Medical History: Diagnosis Date Actinic keratosis Atrophic vaginitis BMI 31.0-31.9,adult 10/11/2010 Chronotropic incompetence ? 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 doubt ? tia likely depression Osteopenia 2015 10 and 1.7 Other and unspecified hyperlipidemia 06/17/2006 trouble with statins Other postprocedural status(V45.89) breast reduction 15 years ago Personal history of colonic polyps 06/17/2006 2014 adenoma, [place] Postmenopausal Pulmonary nodule RLL stable Unspecified essential hypertension 06/17/2006 Family History Problem Relation Age of Onset Ovarian Cancer Mother Cervical Cancer Mother No Known Problems Son No Known Problems Son Other Diagnosed Disorder Brother No Known Problems Brother Stroke Sister Current Outpatient Medications Medication Sig albuterol HFA (VENTOLIN) 108 (90 BASE) MCG/ACT Inhalation Aero Soln Take 2 Puffs by inhalation EVERY SIX HOURS NEEDED (wheeze). ASPIR-81 81 MG Oral Tab EC Take 81 mg by mouth DAILY. Calcium Carbonate-Vitamin D (CALCIUM 600+D3 PO) Take 1 Tab by mouth DAILY. Coenzyme Q10 (CO Q-10) 200 MG Oral Cap Take 1 Cap by mouth DAILY. escitalopram (LEXAPRO) 20 MG Oral Tab TAKE ONE TABLET BY MOUTH ONCE DAILY estrogens, conjugated (PREMARIN) 0.625 MG/GM Vaginal Cream Place 0.5 Applicators into the vagina 2 times per week at bedtime. ezetimibe (ZETIA) 10 MG Oral Tab Take 5 mg by mouth DAILY. FISH OIL 500 MG PO CAPS Take 1 Tab by mouth *DAILY. Bbzqearhfvr-Rgpnynopppm-JMK (TRIPLE FLEX PO) Take 1 Tab by mouth TWICE DAILY. metoprolol succinate (TOPROL XL) 25 MG Oral TABLET SR 24 HR TAKE ONE TABLET BY MOUTH ONCE DAILY nitroglycerin (NITROSTAT) 0.4 MG Sublingual SL Tab Place 1 Tab under tongue EVERY FIVE MINUTES NEEDED for chest pain. Probiotic Product (PROBIOTIC & ACIDOPHILUS EX ST PO) Take 1 Tab by mouth DAILY. Turmeric ([facility]S TURMERIC CURCUMIN) 500 MG Oral Cap Take 1 Tab by mouth TWICE DAILY. Indications: Inflammation zolpidem (AMBIEN) 5 MG Oral Tab Take 1 Tab by mouth EVERY BEDTIME NEEDED (insomnia of travel). Max Daily Amount: 5 mg. No current facility-administered medications for this visit. Allergies Allergen Reactions Avelox [Moxifloxacin Hydrochloride] GI Reaction "vomiting and diarrhea" Bactrim Ds Rash Codeine Rash Doxycycline Hyclate Other Niacin Rash Nitrofurantoin GI Reaction Social History Socioeconomic History Marital status: Spouse name: Not on file Number of children: 2 Years of education: Not on file Highest education level: Not on file Occupational History Not on file Social Needs Financial resource strain: Not hard at all Food insecurity: Worry: Never true Inability: Never true Transportation needs: Medical: No Non-medical: No Tobacco Use Smoking status: Never Smoker Smokeless tobacco: Never Used Substance and Sexual Activity Alcohol use: No Comment: rare Drug use: No Sexual activity: Not Currently Partners: Male Lifestyle Physical activity: Days per week: 0 days Minutes per session: 0 min Stress: Not at all Relationships Social connections: Talks on phone: More than three times a week Gets together: More than three times a week Attends scientology service: Not on file Active member of club or organization: Not on file Attends meetings of clubs or organizations: Not on file Relationship status: Intimate partner violence: Fear of current or ex partner: No Emotionally abused: No Physically abused: No Forced sexual activity: No Other Topics Concern Back Care Not Asked Bike Helmet Not Asked Blood Transfusions Not Asked Caffeine Concern Not Asked Exercise Not Asked Hobby Hazards Not Asked International Travel Not Asked Service Not Asked Occupational Exposure Not Asked Seat Belt Not Asked Self-Exams Not Asked Sleep Concern Not Asked Special Diet Not Asked Stress Concern Not Asked Weight Concern Not Asked 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 Physical Exam Vitals signs reviewed. Constitutional: Appearance: She is not ill-appearing. Cardiovascular: Rate and Rhythm: Normal rate and regular rhythm. Pulmonary: Effort: Pulmonary effort is normal. No respiratory distress. Musculoskeletal: Comments: rom is decreased, about 100 degrees, IR actually able to do it but gingerly Cuff is weak but slight power still ASSESSMENT / IMPRESSION: ICD-9-CM ICD-10-CM 1. 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, subsequent encounter V58.89 S46.012D REFER TO ORTHOPEDICS 840.[address] Rodriguez is talented shoulder specialist but meaghan had patients at her age that rehab well and dont need surgery but since she is stil having significant pain 3 months into this I think she will need surgery Plan She will think about it and would like a decision soon because she not like the pain she is in Author: Vinicio Luu MD 03/21/2019 22:21 documented in this encounter Plan of Treatment Date Type Specialty Care Team Description 04/29/2019 Hospital Encounter Acute Care Carrillo Rodriguez MD [address] [place] [address] [phone] 04/29/2019 Surgery Acute Care Carrillo Rodriguez MD ARTHROSCOPY [address] ACROMIOPLASTY [place] [address] CUFF REPAIR [phone] Name Type Priority Associated Diagnoses Order Schedule REFER TO ORTHOPEDICS Referral Routine Traumatic complete tear Expected: 12/2018, of left rotator cuff, Expires: 03/21/2020 subsequent encounter Health Maintenance Due Date Last Done Comments DEPRESSION SCREENING 10/07/2019 10/06/2018 MEDICARE ANNUAL WELLNESS 10/07/2019 10/06/2018, 09/21/2017, VISIT 09/18/2016, Additional history exists FALL RISK ASSESSMENT 03/02/2020 03/02/2019, 03/02/2019 HIV SCREENING Completed 12/28/2001 PNEUMOCOCCAL 65+YRS Completed [...] Type Problems Progress Blood Pressure Blood Pressure 112/68 No Bell, < 150/90 (03/21/2019 MD Vinicio 10:50 AM EST) Note: This is an individualized treatment (blood pressure) goal for [facility]: Displayed above (on the left) is [...] is an individualized treatment (depression) goal for [facility]: Displayed above is your goal for [...] Weight loss vs. 18 mo Lifestyle 5.2 (03/21/2019 10:50 AM EST) No Vinicio Luu MD max (lbs) >= 10 Note: This is an individualized lifestyle goal for [facility]: Your body mass index (BMI) is more than 30. You should lose weight. A reasonable starting goal is to lose 10 pounds. Displayed above is how many pounds you have lost thus far towards your 10 pound weight loss goal. Keep a regular sleep schedule Lifestyle No Vinicio Luu MD Note: This is an individualized lifestyle goal for [facility]: Please maintain a regular sleep schedule. This may help with some symptoms of depression. Take all prescribed medications as directed Self-management No Vinicio Luu MD Note: This is an individualized self-management goal for [facility]: Please take all prescribed medications as directed. 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, subsequent encounter - Primary documented in this encounter Insurance Payer Benefit Plan / Subscriber ID Effective Dates Phone Address Type Group MEDICARE MEDICARE PART A xxxxxxxxxxx 2004-Present Medicare & B [facility] xxxxxxxxxxx 2016-Present [facility] OPT[employer] Guarantor Name Account Type Relation to Date of Phone Billing Patient Address Grisel Pate Personal/Family 1940 [address] ([address]) [id number] [phone] [place], [place] (Work) [address] documented as of this encounter Advance Directives Type Date Recorded 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
[2019-04-11 10:12] VITALS: BP 148/67
--- NOTE | 2019-04-11 10:35 | UC ---
Throat Pain/Nasal Ayo HPI - HPI Summary HPI Summary: 79-year-old woman comes in with a chief complaint of 3 days of upper respiratory tract infection symptoms. She's had minimal rhinorrhea she does have sore throat. She's been bringing up some yellow and green sputum and also has wheezing that started overnight. No pedal edema no history of CHF. Denies any chest pain. No fevers measured. Patient does have an albuterol inhaler home that she's used before with wheezing however she doesn't know how old it is. - History of Current Complaint Chief Complaint: UCRespiratory Stated Complaint: SORE THROAT Time Seen by Provider: 04/11/19 10:04 Pain Intensity: 3 - Allergies/Home Medications Allergies/Adverse Reactions: Allergies Allergy/AdvReac Type Severity Reaction Status Date / Time codeine Allergy Severe Unknown Verified 04/11/19 10:13 Reaction Details doxycycline Allergy Unknown Verified 04/11/19 10:13 Reaction Details moxifloxacin [From Avelox] Allergy Unknown Verified 04/11/19 10:13 Reaction Details niacin Allergy Unknown Verified 04/11/19 10:13 Reaction Details nitrofurantoin Allergy Vomiting Verified 04/11/19 10:13 Vgqbila-Msq-Mxp Reductase Allergy Unknown Verified 04/11/19 10:13 Inhibitor Reaction Details Sulfa (Sulfonamide Allergy Hives Verified 04/11/19 10:13 Antibiotics) Home Medications: Home Medications Codeine Phosphate/Guaifenesin [Virtussin AC 10-100 mg/5 ml Lq] 1 dose PO Q4HR PRN 04/11/19 [History Confirmed 04/11/19] Ezetimibe 1 tab PO DAILY 04/11/19 [History Confirmed 04/11/19] Multivit-Min/Lycop/Lut/Yhyr287 [Phytomulti Tablet] 1 tab PO DAILY 04/11/19 [ History Confirmed 04/11/19] Turmeric Root Extract [Turmeric Curcumin] 1 tab PO DAILY 04/11/19 [History Confirmed 04/11/19] diphenhydrAMINE HCl [Zzzquil] 1 dose PO QPM PRN 04/11/19 [History Confirmed ] PMH/Surg Hx/FS Hx/Imm Hx Previously Healthy: Yes Endocrine History: Dyslipidemia Respiratory History: Asthma - Surgical History Surgical History: Yes Surgery Procedure, Year, and Place: Tummy tuck and breast reduction,tubal, neck lift - Family History Known Family History: Positive: Cardiac Disease, Non-Contributory Negative: Hypertension Family History: No FHx of Malignant Hyperthermia. No FHx of Anesthesia Reaction. FHx of alzheimer's - Social History Alcohol Use: Weekly Alcohol Amount: 2-3/WEEK Substance Use Type: None Smoking Status (MU): Never Smoked Tobacco - Immunization History Most Recent Influenza Vaccination: FALL 2015 Most Recent Tetanus Shot: less than 1 year ago---sometime in 2015 Most Recent Pneumonia Vaccination: HAD AFTER 65, UNSURE YEAR Review of Systems All Other Systems Reviewed And Are Negative: Yes Constitutional: Positive: Other - see hpi Skin: Positive: Negative Eyes: Positive: Negative ENT: Positive: Sore Throat, Nasal Discharge Respiratory: Positive: Cough, Other - see hpi Cardiovascular: Positive: Negative Gastrointestinal: Positive: Negative Motor: Positive: Negative Neurovascular: Positive: Negative Musculoskeletal: Positive: Negative Neurological: Positive: Negative Psychological: Positive: Negative Is Patient Immunocompromised?: No Physical Exam Triage Information Reviewed: Yes Appearance: Well-Appearing, No Pain Distress, Well-Nourished Vital Signs: Initial Vital Signs Temp 97.9 F 04/11/19 10:05 Pulse 72 04/11/19 10:05 Resp 18 04/11/19 10:05 BP 148/67 04/11/19 10:05 Pulse Ox 97 04/11/19 10:05 Vital Signs Reviewed: Yes Eye Exam: Normal Eyes: Positive: Conjunctiva Clear ENT: Positive: Pharyngeal erythema, TMs normal Neck: Positive: Supple Respiratory: Positive: No respiratory distress, No accessory muscle use, Wheezing - rare Cardiovascular: Positive: RRR Musculoskeletal: Positive: Strength Intact, ROM Intact, No Edema - no calf tendeness Neurological: Positive: Alert, Muscle Tone Normal Psychological: Positive: Age Appropriate Behavior Skin Exam: Normal Throat Pain/Nasal Course/Dx - Course Course Of Treatment: DISCUSSED VIRAL VERSES BACTERIAL INFECTIONS AND THE ROLE OF ANTIBIOTICS. THE PATIENT PREFERS TO BE ON ANTIBIOTICS AT THIS TIME. We discussed whether or not he had a chest x-ray today. At this time the patient prefers to not have a chest x-ray and to be treated with azithromycin and albuterol. If the patient is not improving or worsening she'll get reevaluated. No history of CHF no pedal edema no chest pain by history. Also discussed the possibility of strep throat however because the patient is being treated with an antibiotic she declined getting checked for strep throat. Follow-up with primary care doctor get reevaluated sooner if worse or any questions or concerns. - Differential Dx/Diagnosis Provider Diagnosis: Bronchitis with bronchospasm Discharge ED - Sign-Out/Discharge Documenting (check all that apply): Patient Departure All imaging exams completed and their final reports reviewed: No Studies - Discharge Plan Condition: Stable Disposition: HOME Prescriptions: Albuterol HFA INHALER* [Ventolin HFA Inhaler*] 2 puff INH Q4H PRN #1 mdi PRN Reason: Wheezing Azithromyxin TITI (NF) [Z-Titi (Zithromax) 250 mg tabs #6] 2 tab PO .TODAY, THEN 1 DAILY #6 tab Patient Education Materials: Acute Bronchitis (ED), Bronchospasm (ED) Referrals: Vinicio Luu MD [Primary Care Provider] - Additional Instructions: FOLLOW UP WITH YOUR DOCTOR IF NOT COMPLETELY IMPROVED. GET REEVALUATED SOONER IF NOT IMPROVED OR WORSE OR ANY QUESTIONS OR CONCERNS. - Billing Disposition and Condition Condition: STABLE Disposition: Home
== END 2019-04-11 10:50 | disposition home or self-care (01) ==
LOC: UCEAST 09:56
DX: J98.01 Acute bronchospasm (principal); J45.909 Unspecified asthma, uncomplicated; E78.5 Hyperlipidemia, unspecified; Z88.5 Allergy status to narcotic agent; Z88.1 Allergy status to other antibiotic agents; Z91.09 Other allergy status, other than to drugs and biological substances; Z88.2 Allergy status to sulfonamides; Z79.899 Other long term (current) drug therapy
CPT/HCPCS: 99212; G0463

== ENCOUNTER 2022-03-28 08:30 | Inpatient (IN) ==
[~2022-03-28 08:30] MED LIST: Buffered Lidocaine 1% SYRIN 1 ml INTRADERM ONE; HYDROcodone/ACETAMIN 5/325 mg TAB PO PRN; Lactated Ringers 1000 ml BAG 1,000 ML IV SCH; Metoclopramide 5 MG/ML VIAL (10 mg) IV PRN; Naloxone 0.4 mg VIAL 0.4 mg/ml 1 ml VIAL IV PRN; Ondansetron 4 mg VIAL 2 MG/ML 2 ml VIAL IV PRN; fentaNYL 100 mcg/2 ml 50 MCG/ML VIAL IV PRN
[2022-03-28] MEDS ORDERED: Midazolam 2 mg/2 ml VIAL 1 mg/ml 2 ml VIAL (2 mg) ONE (09:33)
[2022-03-28] MEDS ORDERED: ceFAZolin 2 GM PREMIX 2 GM/50 ML BAG ONE (09:36)
[2022-03-28] MEDS ORDERED: fentaNYL 100 mcg/2 ml 50 MCG/ML VIAL ONE ×4 (10:09→15:48)
[2022-03-28] MEDS ORDERED: Ondansetron 4 mg VIAL 2 MG/ML 2 ml VIAL ONE (10:09)
[2022-03-28] MEDS ORDERED: Dexamethasone IV 4 MG/ML VIAL 1 ml VIAL ONE (10:09)
[2022-03-28] MEDS ORDERED: Lidocaine 2% PF 5 ML VIAL ONE ×2 (10:09→12:22)
[2022-03-28] MEDS ORDERED: Bupivacaine 0.5% PF 10 ML SDV VIAL INJ ONE (10:09)
[2022-03-28] MEDS ORDERED: Rocuronium 50 mg VIAL 10 mg/ml 5 ml VIAL (50 mg) ONE ×2 (12:30→13:12)
[2022-03-28] MEDS ORDERED: Morphine 2 MG/ML SYRINGE IV PRN (14:03)
[2022-03-28] MEDS ORDERED: Lactulose 30 ml UDC PO PRN (14:03)
[2022-03-28] MEDS ORDERED: Magnesium Hydroxide LIQ 30 ML UDC PO PRN (14:03)
[2022-03-28] MEDS ORDERED: Scopolamine 1 mg/72hr PATCH TRANSDERM PRN (14:11)
[2022-03-28] MEDS ORDERED: ROPIVACAINE 5 MG/ML 30 ML BTL (0.5%) ONE (14:12)
[2022-03-28] MEDS ORDERED: ceFAZolin 1 GM ADVAN 1 GM in NS 0.9% 50 ML 50 ML IVPB SCH (15:00)
[2022-03-28] MEDS ORDERED: HYDROcodone/ACETAMIN 5/325 mg TAB ONE (16:19)
[2022-03-28] MEDS ORDERED: Albuterol HFA INHALER 8 gm MDI INH PRN (17:38)
[2022-03-28] MEDS: Lactated Ringers 1000 ml BAG 1,000 ML IV SCH (17:39)
[2022-03-28] MEDS: Magnesium Hydroxide LIQ 30 ML UDC PO SCH (19:58)
[2022-03-28] MEDS: ceFAZolin 1 GM ADVAN 1 GM in NS 0.9% 50 ML 50 ML IVPB SCH (20:02)
[2022-03-28] MEDS: HYDROcodone/ACETAMIN 5/325 mg TAB PO PRN (22:22)
[2022-03-29] MEDS: ceFAZolin 1 GM ADVAN 1 GM in NS 0.9% 50 ML 50 ML IVPB SCH ×2 (04:10→11:37)
[2022-03-29] MEDS: Lactated Ringers 1000 ml BAG 1,000 ML IV SCH (06:20)
[2022-03-29 06:59] LABS: Hematocrit 33 % (35-47); Hemoglobin 11.3 g/dL (12.0-16.0); Mean Platelet Volume 8.1 fL (7.4-10.4); Platelet Count 132 10^3/uL (150-450)
[2022-03-29 07:11] LABS: Calcium 8.2 mg/dL (8.6-10.3); Potassium 4.5 mmol/L (3.5-5.0); eGFR CKD-EPI 87.6 (>60)
[2022-03-29] MEDS: Aspirin EC 81 mg TAB.EC (enteric coated) PO SCH (09:37)
[2022-03-29] MEDS: HYDROcodone/ACETAMIN 5/325 mg TAB PO PRN ×3 (09:38→22:05)
[2022-03-29] MEDS: Magnesium Hydroxide LIQ 30 ML UDC PO SCH ×2 (09:38→22:36)
[2022-03-30 07:13] LABS: Hematocrit 31 % (35-47); Hemoglobin 10.7 g/dL (12.0-16.0); Mean Platelet Volume 8.4 fL (7.4-10.4); Platelet Count 118 10^3/uL (150-450)
[2022-03-30] MEDS: HYDROcodone/ACETAMIN 5/325 mg TAB PO PRN ×3 (08:24→22:32)
[2022-03-30] MEDS: Magnesium Hydroxide LIQ 30 ML UDC PO SCH ×2 (08:27→21:08)
[2022-03-30] MEDS: Aspirin EC 81 mg TAB.EC (enteric coated) PO SCH ×2 (08:35→21:08)
[2022-03-31 06:11] LABS: Hematocrit 31 % (35-47); Hemoglobin 10.4 g/dL (12.0-16.0); Mean Platelet Volume 8.3 fL (7.4-10.4); Platelet Count 120 10^3/uL (150-450)
[2022-03-31] MEDS: Magnesium Hydroxide LIQ 30 ML UDC PO SCH ×2 (08:38→21:13)
[2022-03-31] MEDS: HYDROcodone/ACETAMIN 5/325 mg TAB PO PRN ×3 (09:19→21:40)
[2022-03-31 16:53] LABS: Rapid COVID-19 Molecular Undetected (Undetected)
[2022-03-31] MEDS: Aspirin EC 81 mg TAB.EC (enteric coated) PO SCH (21:10)
[2022-04-01 05:44] LABS: Hematocrit 30 % (35-47); Hemoglobin 10.4 g/dL (12.0-16.0); Mean Platelet Volume 8.1 fL (7.4-10.4); Platelet Count 135 10^3/uL (150-450)
[2022-04-01] MEDS: Magnesium Hydroxide LIQ 30 ML UDC PO SCH (09:27)
[2022-04-01 11:12] VITALS: BP 117/58
== END 2022-04-01 13:56 | DRG 470 ==
LOC: INTOOBSV 09:15 → AA 09:15 → SSU 17:41
PROVIDERS: ADMIT Orthopaedic Surgery Adult Reconstructive Orthopaedic Surgery; ATTEND Orthopaedic Surgery Adult Reconstructive Orthopaedic Surgery